=== PATIENT | female | born 1990 | race African-American/Black ===

== ENCOUNTER 2020-02-21 20:10 | Emergency (ER) | payer MEDICAID ==
[~2020-02-21] VITALS: Ht 167.6 cm; Wt 78.0 kg
[2020-02-21 20:55] VITALS: BP 117/83
== END 2020-02-22 00:26 | disposition left against medical advice (07) ==
LOC: ER 20:10
DX: Z53.21 Procedure and treatment not carried out due to patient leaving prior to being seen by health care provider (principal)

== ENCOUNTER 2020-02-22 08:41 | Emergency (ER) | payer MEDICAID ==
[~2020-02-22] VITALS: Ht 165.1 cm; Wt 79.0 kg
[2020-02-22 08:45] VITALS: BP 139/79
[2020-02-22] MEDS ORDERED: KETOROLAC 30MG/ML VIAL IM ONE (09:00)
[2020-02-22] MEDS ORDERED: METHOCARBAMOL 500MG TABLET PO ONE (09:00)
== END 2020-02-22 10:25 | disposition home or self-care (01) ==
LOC: ER 08:41
DX: S30.0XXA Contusion of lower back and pelvis, initial encounter (principal); W07.XXXA Fall from chair, initial encounter; Y93.89 Activity, other specified; Y92.018 Other place in single-family (private) house as the place of occurrence of the external cause
CPT/HCPCS: 72220; 81025; 96372; 99283; J1885

== ENCOUNTER 2020-06-07 17:31 | Emergency (ER) | payer MEDICAID ==
[~2020-06-07] VITALS: Ht 165.1 cm; Wt 81.8 kg
[2020-06-07] MEDS ORDERED: KETOROLAC 60MG/2ML VIAL IM ONE (19:15)
[2020-06-07 20:07] VITALS: BP 130/66
[2020-06-07] MEDS ORDERED: NAPR-420 MT (22:16)
== END 2020-06-07 22:27 | disposition home or self-care (01) ==
LOC: ER 17:31
DX: M54.5 Low back pain (principal); K21.9 Gastro-esophageal reflux disease without esophagitis
CPT/HCPCS: 72131; 81025; 96372; 99284; J1885

== ENCOUNTER 2025-02-22 08:49 | Emergency (ER) | payer MEDICAID ==
[~2025-02-22 08:49] MED LIST: NAPR-420 MT
[2025-02-22 09:53] VITALS: PULSE 88; RESP 18; O2SAT 99
== END 2025-02-22 10:00 | disposition left against medical advice (07) ==
LOC: ER 08:49
DX: R10.9 Unspecified abdominal pain (principal); Z53.21 Procedure and treatment not carried out due to patient leaving prior to being seen by health care provider
CPT/HCPCS: 99281